=== PATIENT | female | born 1955 | race Caucasian/White ===

== ENCOUNTER 2023-04-12 17:00 | Emergency (ER) | payer MEDICARE, SELFPAY ==
[2023-04-12 17:10] VITALS: BP 189/92; PULSE 66; RESP 16; TEMP 36.3; O2SAT 96; BMI 31.3
[2023-04-12 17:14] VITALS: BP 189/92; PULSE 67; O2SAT 97
[2023-04-12 17:58] VITALS: BP 191/103; PULSE 67; O2SAT 97
--- NOTE | 2023-04-12 17:58 | CRLHL7_ITS ---
For Patients: As a result of the Century Cures Act, medical imaging exams and procedure reports are released immediately into your electronic medical record. You may view this report before your referring provider. If you have questions, please contact your health care provider. Indication: Continued hip pain status post fall. Technique: Noncontrast CT of the right hip. Permanently recorded images are archived. Please note that all CT scans at this facility use dose modulation, iterative reconstruction, and/or weight-based dosing when appropriate to reduce radiation dose to as low as reasonably achievable. Comparison: None. Findings: No acute fracture or aggressive osseous lesion. Alignment is normal. There are mild degenerative changes of the bilateral hips, lower lumbar spine, and pubic symphysis. A pessary device is noted. Normal appendix. No free fluid in the pelvis. The surrounding soft tissues are unremarkable. Impression: No acute bony abnormality. Please note that all CT scans at this facility use dose modulation, iterative reconstruction, and/or weight-based dosing when appropriate to reduce radiation dose to as low as reasonably achievable. Dictated by Colton Ferrera MD @ 04/12/2023 7:21:21 PM (Electronically Signed)
--- OUTSIDE RECORDS SUMMARY | 2023-04-12 18:13 | XMS_ITS | Continuity of Care Document ---
Author Name Unknown Organization [facility] Address [address] [address] [place] [address] Phone Care Team Providers Care Forensic Accountant Name Role Phone Michael Brenner MD Unavailable Unavaila ble Procedures Procedure Date Subsqt Hosp-da E&m Minr Compl 4 Ercp; W/endo Retro Remov Stone 14 Ercp; W/sphincterotomy/papillo 14 Init Hosp-da E&m Mod Severity 4 Subsqt Hosp-da E&m Minr Compl 3 Ercp; W/endo Retro Remov Stone 13 ERCP W/lithotripsy Ercp; W/endo Retro Remov Fb/ch 13 Init Inpt Cons New/est Mod-hi 3 Ercp; W/endo Retro Remov Stone 13 Ercp; W/sphincterotomy/papillo 13 Ercp; W/endo Retro Insrt Tube/ 13 Advance Directives Directive Yes / No Effective Date File Name No Information Encounters Encounter Description Practice Location Reason(s) For Visit Diagnoses Date Provider Providers Copied on Encounter [facility], [address] [address], [place], [place], [id number], [place] tel:[phone] [facility] No Information [address] [facility], [facility] [address], [place], [place], [id number], [place]. tel:[phone] Referring Provider: Listed Not. Subsqt Hosp-da E&m Minr Compl [facility], [address] [address], [place], [place], [id number], [place] tel:[phone] [facility] No Information 4 Saldiego FERNANDEZ Saida. [address] [facility], [facility] [address], [place], [place], [id number], [place]. tel:[phone] Referring Provider: Shelby Pacheco, [address] [facility] [address], [place], [address]. tel:[phone] [facility], [address] [address], [place], [id number], [place] tel:[phone] [facility] No Information [address] [facility], [facility] [address], [place], [id number], [place]. tel:[phone] Referring Provider: Shelby Pacheco, [address] [facility] [address], [place], [address]. tel:[phone] Init Hosp-da E&m Mod Severity [facility], [address] [address], [facility] [place] [id number], [place] tel:[phone] [facility] No Information [address] [facility], [facility] [address], [place], [place], [id number], [place]. tel:[phone] Referring Provider: Shelby Pacheco, [address] [facility] [address], [place], [address]. tel:[phone] Subsqt Hosp-da E&m Minr Compl [facility], [address] [address], [place], [place], [id number], [place] tel:[phone] [facility] No Information [address] [facility], [facility] [address], [place], [place], [id number], [place]. tel:[phone] Referring Provider: Carlos Alberto WHITE, [address] [place], [address]. tel:[phone] [facility], [address] [address], [place], [id number], tel:[phone] [facility] No Information 0 201 3 Naomi Myrick. [address] [place] [address], [id number], [place]. tel:[phone] Referring Provider: Carlos Alberto WHITE, [address], [place], [address]. tel:[phone] Init Inpt Cons New/est Mod-hi [facility], [address] [address], [place], [id number], tel:[phone] [facility] No Information 3 Pablo Sage. [address] [place] [address], [id number], [place]. tel:[phone] Referring Provider: Carlos Alberto WHITE, [address], [place], [address]. tel:[phone] [facility], [address] [address], [facility] [place], [id number], tel:[phone] [facility] No Information 3 Arabella Arreguin. [address] [place] [address], [id number], . tel:[phone] Referring Provider: Carlos Alberto WHITE, [address], [place], [address]. tel:[phone] Family History Family Member Type Diagnosis Age At Onset No Information Payers Payer name Insurance type Covered alliance party ID Authoriza tion(s) No Information Social History Type Description Quantity Date Captured Comments Sex Female Smoking Status No Information Chief Complaint And Reason For Visit No Information Reason For Referral Reason For Referral No Information Plan Of Treatment Date Type Action Status No Information History Of Present Illness Encounter Date Complaint History Of Prese nt Illness No Information Functional Status Date Functional Assessmen t No Information Instructions Date Instruction Additional Infor mation No Information Assessments Type Assessment Date No Information Patient Care Teams Name Effective Dates (start - stop) Status Members No Information
--- NOTE | 2023-04-12 18:19 | ED.BACK ---
HPI - Back Pain/Injury General Time Seen by Provider: 18:19 Date Seen: 04/12/23 Chief Complaint: Back Injury/Pain Stated Complaint: Hip and back pain, possible aorta issue Time Seen by Provider: 04/12/23 17:34 Source: patient Mode of arrival: ambulatory Limitations: no limitations History of Present Illness HPI Narrative: Patient is a 68-year-old female with history of white coat hypertension, low back pain and sees a chiropractor on a regular basis who comes to the [facility] with concerns regarding aortic problems as well as a possible fracture in her right hip. Patient states that 3 weeks ago she was walking through the kitchen and grandchild had spilled some water and she slipped. She notes that when she went down she actually landed on her left hip that that her right leg went under the Fridge a radiator. She notes that it was in a rather awkward position and had to pull her leg out from under the Fridge. She states that since that time she has had continued pain especially on the right hip and groin. She has been using of a walker at home. In the past she has used steroids for back pain. She has had no problems with that. She states that she has been going to her regular chiropractor for the past 3 weeks and then family suggested she go to a new chiropractor today that is able to take x-rays. The new chiropractor told her that she had bone spurs on her spine that could ripped her aorta as well as a fracture in the right hip. She was sent to the emergency room. She does not have a primary MD at this time. She has not had a cough cold congestion or fever. No loss of bowel or bladder control. Patient notes that her blood pressure is elevated and this happens to her. She states that often is it is in the 140s. But that it will go back down later. Never taken medications for this. She has been on ibuprofen. Related Data Allergies Allergy/AdvReac Type Severity Reaction Status Date / Time amoxicillin AdvReac Severe Hives Verified 04/12/23 17:16 clindamycin AdvReac Severe Verified 04/12/23 17:16 erythromycin base AdvReac Severe Verified 04/12/23 17:16 Sulfa (Sulfonamide AdvReac Severe Verified 04/12/23 17:16 Antibiotics) Review of Systems Status of ROS: Reports: 6 or more systems reviewed and unremarkable except as noted in History and below Const: Denies: fever ENMT: Denies: neck pain Cardio: Denies: chest pain or shortness of breath with exertion Resp: Denies: shortness of breath or cough GI: Denies: abdominal pain Musculo: Denies: neck pain Neuro: Denies: headache or dizziness PFSH PFS Social History Smoking Status: Never smoker How often do you have a drink containing alcohol: never AUDIT-C Alcohol total score: 0 Non-prescribed substance use: denies use Exam Narrative: Exam Narrative: Patient is alert and oriented. Very pleasant woman in no acute distress. External ears eyes nose carry. Heart with regular rate and rhythm. No additional heart sounds or murmurs noted. Lungs are clear bilaterally. No significant pain with palpation down lumbar spine. There is mild discomfort along the posterior aspect of the greater trochanter. Patient has full motor and sensation of the lower extremities. She does have discomfort with hip flexion. Const: Vital Signs, click to edit/add: Vital Signs - 24 hr 04/12/23 17:10 04/12/23 17:14 04/12/23 17:58 Temperature 97.4 F L Pulse Rate Pulse Rate [Left P ulse Oximeter] 66 67 67 Respiratory Rate 16 Blood Pressure Blood Pressure [Ri ght Upper Arm] 189/92 H 189/92 H 191/103 H Pulse Oximetry 96 97 97 Oxygen Delivery Me thod Room Air Room Air 04/12/23 19:49 04/12/23 19:50 04/12/23 19:52 Temperature Pulse Rate 70 Pulse Rate [Left P ulse Oximeter] 65 Respiratory Rate 16 Blood Pressure 190/88 H Blood Pressure [Ri ght Upper Arm] 182/107 H Pulse Oximetry 95 95 Oxygen Delivery Me thod Room Air Documenting provider has reviewed patient's vital signs: yes Course Course Hospital Course: At this time patient of is very worried about a hip fracture and the size of her aorta as well as potential for tearing hair her aorta. I have explained that I have never known this to be a concern regarding bone spurs on the spine tearing in aorta. She is reassured by this. Unable to reassure her that her aorta is okay. She states that her aunt had aortic rupture. Will do a chest x-ray but did explain this is actually very poor test to know how big the aorta is and truly an ultrasound would be more accurate. Given the fact that patient was told she had a hip fracture and she has hip pain here tonight would recommend CT of the hip. Reevaluation(s) Reevaluation #1: Blood pressure continues to be elevated. Patient unable to lay flat given the discomfort. Reevaluation #2: Patient noted to be feeling better after [place] 02/3251 tab and Zofran 4 mg ODT. Vital Signs Vital signs: Initial Vital Signs Temperature 97.4 F L 04/12/23 17:10 Temperature Source Temporal Artery Scan 04/12/23 17:10 Pulse Rate 66 04/12/23 17:10 Pulse Rhythm Regular 04/12/23 17:10 Pulse Strength 3+ Normal 04/12/23 17:10 Respiratory Rate 16 04/12/23 17:10 Blood Pressure 189/92 H 04/12/23 17:10 Blood Pressure Mean 124 H 04/12/23 17:10 Blood Pressure Position Sitting 04/12/23 17:10 Pulse Oximetry 96 04/12/23 17:10 Oxygen Delivery Method Room Air 04/12/23 17:10 Vital Signs Temperature 97.4 F L 04/12/23 17:10 Pulse Rate 66 04/12/23 17:10 Respiratory Rate 16 04/12/23 17:10 Blood Pressure 189/92 H 04/12/23 17:10 Pulse Oximetry 96 04/12/23 17:10 Oxygen Delivery Method Room Air 04/12/23 17:10 Temperature 97.4 F L 04/12/23 17:10 Pulse Rate 65 04/12/23 19:52 Respiratory Rate 16 04/12/23 19:52 Blood Pressure 182/107 H 04/12/23 19:52 Pulse Oximetry 95 04/12/23 19:52 Oxygen Delivery Method Room Air 04/12/23 19:52 MDM - Back Pain/Injury MDM Narrative Medical decision making narrative: 1. Hip. Patient told by her chiropractor that she had a fracture of her hip. No evidence of hip fracture on CT. Right hip pain I suspect that this may be a labral tear based on patient's description of history. She may have some overlying lumbar radiculitis but I do not see radiculopathy at this time. Prednisone 20 mg p.o. b.i.d. x5 days is ordered. Would Like her to discontinue her ibuprofen at this time. Follow-up with orthopedics or her a primary care physician. She does not have it anybody like that and I therefore have suggested [facility] as she lives in [place]. 2. Family history of aortic aneurysm-patient extremely worried about an enlarged aorta again based on chiropractic suggestion that her aorta was enlarged. Chest x-ray reassuring at this time with no evidence of widened mediastinum. I did explain that chest x-ray is a poor indicator of aorta size unless the mediastinum is significantly widening. She does have an aunt who of aortic aneurysm. Patient has no chest pain shortness of breath tonight. Recommend follow-up with ultrasound if indicated after discussion with primary care. 3. Hypertension-patient has no headache, visual changes, chest pain at this time. Notes that blood pressure will sometimes be high when being seen by healthcare. Recommend continued monitoring and follow-up with primary MD. return if blood pressure worsens or patient has onset of new symptoms. 4. Disposition-home at this time. Have given patient additional [place] 02/3251 tablet p.o. q.4 hours p.r.n. 6. Via instant meds. Zofran 4 mg ODT p.r.n. also given 10. Via instant meds. Patient does ask if she has await lift restriction. I would do only what is comfortable for her. She also S if [place] think this is fine although sitting in a car for prolonged. May increase her discomfort. Imaging Data Chest x-ray: Attestation: I have reviewed the pertinent imaging results. My impression: No acute findings Radiologist's impression: Cardiovascular and mediastinum: Cardiomediastinal silhouette is within normal limits tortuosity of the descending aorta. Lungs and pleural spaces: Lungs are clear. No sign of pleural effusion. No pneumothorax. Bones and soft tissues: Unremarkable for age. IMPRESSION: No acute cardiopulmonary process identified.. Right hip CT: Attestation: I have reviewed the pertinent imaging results. My impression: I do not note any fracture Radiologist's impression: No acute fracture or aggressive osseous lesion. Alignment is normal. There are mild degenerative changes of the bilateral hips, lower lumbar spine, and pubic symphysis. A pessary device is noted. Normal appendix. No free fluid in the pelvis. The surrounding soft tissues are unremarkable. Impression: No acute bony abnormality. Discharge Plan Discharge Clinical Impression: Low back pain Qualifiers: Chronicity: unspecified Back pain laterality: right Injury of hip, right Qualifiers: Encounter type: initial encounter Qualified Code(s): S79.911A - Unspecified injury of right hip, initial encounter Patient Disposition: Home, Self-Care Condition: Unchanged Additional Instructions: Prednisone 20 mg twice daily may be initiated. I did give you an instant meds prescription for a few vicodin tablets to use while the steroids are kicking in. Zofran is an anti nausea tablet may you may also use. Please do not use Aleve Advil or Motrin while using prednisone. Follow-up with either Orthopedics, phone number [phone] or a primary care physician in 1 of our clinics for further evaluation. If you are not improving you may need MRI of your back or hip. Dr. Venegas is an excellent physician and works out of the [facility]. That phone number is [phone] Return to the emergency room for worsening symptoms or onset of new symptoms. In regards to your blood pressure: Continue to monitor. This may be slightly elevated because of prolonged ibuprofen you since you had her injury for 3 weeks. Recheck with her primary MD. Seek medical attention for increasing headache, chest pain and as needed. Activity Level: No Restrictions Discharge Diet: Regular Follow Up/Referrals: Provider,Not a Local [Primary Care Provider] - Stand Alone Forms: [facility] Info Instructions
--- NOTE | 2023-04-12 19:35 | CRLHL7_ITS ---
For Patients: As a result of the Cures Act, medical imaging exams and procedure reports are released immediately into your electronic medical record. You may view this report before your referring provider. If you have questions, please contact your health care provider. INDICATION: Hypertension. TECHNIQUE: Chest 2 views. COMPARISON: None. FINDINGS: Cardiovascular and mediastinum: Cardiomediastinal silhouette is within normal limits tortuosity of the descending aorta. Lungs and pleural spaces: Lungs are clear. No sign of pleural effusion. No pneumothorax. Bones and soft tissues: Unremarkable for age. IMPRESSION: No acute cardiopulmonary process identified.. Dictated by Carter Ríos MD @ 04/12/2023 8:52:26 PM (Electronically Signed)
[2023-04-12 19:49] VITALS: PULSE 70; O2SAT 95
[2023-04-12 19:50] VITALS: BP 190/88
[2023-04-12 19:52] VITALS: BP 182/107; PULSE 65; RESP 16; O2SAT 95
[2023-04-12] MEDS: ONDANSETRON ODT 4 MG TAB PO (20:23)
[2023-04-12] MEDS: HYDROCODONE-ACETAMIN 5-325 MG 1 TAB PO (20:25)
--- OUTSIDE RECORDS SUMMARY | 2023-04-12 21:53 | XMS_ITS | Continuity of Care Document ---
Author Name Unknown Organization [facility] Address [address] [address] [place] [address] Phone Care Team Providers Care Transportation Consultant Name Role Phone Michael Brenner MD Unavailable [...] Diagnoses Date Provider Providers Copied on Encounter [facility], [address] [address], [place], [place], [id number], [place] tel:[phone] [facility] No Information 4 Elidia Rodriguez. [address] [facility] [facility] [address], [place], [place], [id number], [place]. tel:[phone] Referring Provider: Listed Not. Subsqt Hosp-da E&m Minr Compl [facility], [address] [address], [place], [place], [id number], [place] tel:[phone] [facility] No Information 4 Saldiego FERNANDEZ Saida. [address] [facility], [facility] [address], [place], [place], [id number], [place]. tel:[phone] Referring Provider: Shelby Pacheco, [address] [facility] [address], [place], [address]. tel:[phone] [facility], [address] [address], [place], [id number], [place] tel:[phone] [facility] No Information 4 Elidia Rodriguez. [address] [facility], [facility] [address], [place], [id number], [place]. tel:[phone] Referring Provider: Shelby Pacheco, [address] [facility] [address], [place], [address]. tel:[phone] Init Hosp-da E&m Mod Severity [facility], [address] [address], [facility] [place] [facility], [id number], [place] tel:[phone] [facility] No Information 4 Luis Small. [address] [facility], [facility] [address], [place], [place], [id number], [place]. tel:[phone] Referring Provider: Shelby Pacheco, [address] [facility] [address], [place], [address]. tel:[phone] Subsqt Hosp-da E&m Minr Compl [facility], [address] [address], [place], [id number], [place] tel:[phone] [facility] No Information 3 Pietro Mac. [address] [facility], [facility] [address], [place], [place], [id number], [place]. tel:[phone] Referring Provider: Carlos Alberto WHITE, [address] [place], [address]. tel:[phone] [facility], [address] [address], [place], [place], [id number], tel:[phone] [facility] No Information 0 201 3 Naomi Myrick. [address] [place] [address], [id number], [place]. tel:[phone] Referring Provider: Carlos Alberto WHITE, [address], [place], [address]. tel:[phone] Init Inpt Cons New/est Mod-hi [facility], [address] [address], [place], [id number], tel:[phone] [facility] No Information 3 Pablo Sage. [address] [place] [address], [id number], [place]. tel:[phone] Referring Provider: Carlos Alberto WHITE, [address], [place], [address]. tel:[phone] [facility] C[facility]Y, [address] [address], [facility] [place], [id number], tel:[phone] [facility] No Information 3 Arabella Arreguin. [address] [place] [address], [id number], . tel:[phone] Referring Provider: Carlos Alberto WHITE, [address], [place], [address]. tel:[phone] Family History Family Member Type Diagnosis Age At Onset No Information Payers Payer name Insurance type Covered constitution party ID Authoriza tion(s) No Information Social [...]
== END 2023-04-12 21:05 | disposition home or self-care (01) ==
PROVIDERS: Emergency Provider Family Medicine
DX: M54.50 Low back pain, unspecified (principal); S79.911A Unspecified injury of right hip, initial encounter
CPT/HCPCS: 71046; 73700; 99284; A9270

== ENCOUNTER 2023-04-25 14:08 | Outpatient (CLI) | payer MEDICARE, SELFPAY ==
--- NOTE | 2023-04-25 14:30 | CRLHL7_ITS ---
For Patients: As a result of the Century Cures Act, medical imaging exams and procedure reports are released immediately into your electronic medical record. You may view this report before your referring provider. If you have questions, please contact your health care provider. HISTORY: Fall. Right hip injury 4 weeks ago. TECHNIQUE: Axial T1, coronal T1 and coronal PD fat-sat large atakm-di-bdkb images were obtained of the entire pelvis. Axial, sagittal and coronal proton density fat-saturated small vwvcv-te-uysx images were obtained of the right hip. COMPARISON: 04/12/2023 CT FINDINGS: Right hip: No significant joint effusion. Mild chondral thinning. Acetabular labrum is intact. No avascular necrosis. - Left hip: On the large mztdw-mm-wsur images of the entire pelvis, mild left hip chondral thinning. No significant left hip effusion. Technique is not optimized for evaluation of internal derangement of the left hip. - Osseous structures: There is no acute pelvic or proximal femoral fracture. - Musculotendinous structures and bursae: Gluteal tendons and muscles are intact. Moderate to severe right and moderate left hamstring origin tendinosis.The distal iliopsoas tendons are intact. No evidence of trochanteric or iliopsoas bursitis. Muscle volume is within normal limits. - Other findings: Pubic symphysis and sacroiliac joints are intact. - Intrapelvic soft tissues: No significant abnormality. IMPRESSION: 1. Mild bilateral hip chondral thinning. 2. Moderate to severe right and moderate left hamstring origin tendinosis. Dictated by Rodríguez Santillan MD @ 04/26/2023 9:56:02 AM (Electronically Signed)
--- NOTE | 2023-04-25 16:00 | CRLHL7_ITS ---
For Patients: As a result of the Century Cures Act, medical imaging exams and procedure reports are released immediately into your electronic medical record. You may view this report before your referring provider. If you have questions, please contact your health care provider. INDICATION: Family history of abdominal aortic aneurysm TECHNIQUE: Ultrasound abdominal aorta COMPARISON: None FINDINGS: The proximal abdominal aorta measures 3.0 centimeter x 2.4 centimeter, mid aorta measures 2.1 centimeter x 2.3 centimeter, distal aorta measures 1.4 centimeter x 2.0 centimeter, right common iliac artery measures 1.0 centimeter x 1.3 centimeter, and the left common iliac artery measures 1.0 centimeter x 1.4 centimeter. There are no periaortic abnormalities evident. IMPRESSION: The proximal abdominal aorta measures up to 3.0 centimeters. 3 year follow up recommended Dictated by Rodríguez Vinson MD @ 04/25/2023 7:34:04 PM (Electronically Signed)
[2023-04-25 16:15] LABS: Chloride* 101 mmol/L (96-114)
[2023-04-25 16:16] LABS: Potassium* 3.7 mmol/L (3.6-5.1); Sodium* 139 mmol/L (135-149)
[2023-04-25 16:18] LABS: Creatinine* 0.9 mg/dL (0.5-1.5); Estimated Glomerular Filt Rate 70 ml/min
[2023-04-25 16:19] LABS: Blood Urea Nitrogen* 20 mg/dL (7-30); Calcium* 8.9 mg/dL (8.4-10.6); Carbon Dioxide* 29 mmol/L (20-32); Glucose* 82 mg/dL (60-115)
== END 2023-04-25 14:09 | disposition home or self-care (01) ==
LOC: MRI 14:10
PROVIDERS: PCP Nurse Practitioner Family; Visit Provider Nurse Practitioner Family
DX: M25.551 Pain in right hip (principal); S79.911A Unspecified injury of right hip, initial encounter; R03.0 Elevated blood-pressure reading, without diagnosis of hypertension; Z82.49 Family history of ischemic heart disease and other diseases of the circulatory system
CPT/HCPCS: 36415; 73721; 76775; 80048; 87086

== ENCOUNTER 2023-04-25 16:41 | Outpatient (CLI) | payer MEDICARE, SELFPAY | END 2023-04-25 16:42 | disposition home or self-care (01) | LOC: NFLDREF 04-26 20:27 | PROVIDERS: PCP Nurse Practitioner Family; Referring Provider Nurse Practitioner Family; Visit Provider Nurse Practitioner Family | DX: R30.0 Dysuria (principal); N39.0 Urinary tract infection, site not specified | CPT/HCPCS: 87086; 87186 ==